=== PATIENT | male | born 1975 | race Two or more races ===

== ENCOUNTER 2024-05-03 14:25 | Emergency (ER) | payer OTHER, MEDICAID ==
[~2024-05-03] VITALS: Ht 149.9 cm; Wt 80.0 kg
[2024-05-03] MEDS: LIDOCAINE 1% HCL (LOCAL ANESTH.) INJ 20ML MDV ONE (16:11)
[2024-05-03] MEDS ORDERED: cefTRIAXone SOD 1,000 MG VL IM ONE (16:15)
[2024-05-03] MEDS ORDERED: IBUPROFEN 800 MG TAB PO ONE (16:15)
[2024-05-03] MEDS: LIDOCAINE 1% HCL (LOCAL ANESTH.) INJ 20ML MDV IJ ONE (16:25)
[2024-05-03 16:27] VITALS: BP 155/108; PULSE 104; RESP 20; TEMP 98.2; O2SAT 96
[2024-05-03] MEDS: cefTRIAXone 1GM/50ML D5W 50 ML IV ONE (16:43)
[2024-05-03] MEDS: PIPERACILLIN-TAZOB 3.375GM 100 ML IV ONE (16:43)
[2024-05-03] MEDS: KETOROLAC TROMETH 30 MG/ML 1ML VIAL IV ONE (16:43)
[2024-05-03] MEDS ORDERED: AUG875T PO (17:37)
[2024-05-03] MEDS ORDERED: IBUP-1456 PO (17:37)
== END 2024-05-03 18:22 | disposition home or self-care (01) ==
LOC: EDBD 14:25 → ER 14:25
DX: S02.2XXA Fracture of nasal bones, initial encounter for closed fracture (principal); S01.411A Laceration without foreign body of right cheek and temporomandibular area, initial encounter; H70.93 Unspecified mastoiditis, bilateral
CPT/HCPCS: 12011; 70486; 96365; 96368; 96375; 99285; J0696; J1885; J2001; J2543